=== PATIENT | female | born 1995 | race African-American/Black ===

== ENCOUNTER 2017-06-09 21:22 | Emergency (ER) | payer MEDICAID, OTHER ==
[~2017-06-09] VITALS: Ht 167.6 cm; Wt 84.0 kg
[2017-06-09 23:26] LABS: BASOPHILS % 0.6 % (0.0-2.0); EOSINOPHILS % 9.9 % (0.0-5.0); HEMOGLOBIN. 9.7 g/dL (12.0-16.0); LYMPHOCYTES % 35.8 % (20.0-50.0); MEAN CORPUSCULAR HEMOGLOBIN 29.1 pg (28.0-32.0); MEAN CORPUSCULAR VOLUME 86.7 fL (81.0-99.0); MEAN PLATELET VOLUME 7.5 fl (7.4-10.4); MONOCYTES % 8.9 % (2.0-8.0); NEUTROPHILS % 44.8 % (40.0-76.0); PLATELET 253 x1000/uL (130-400); RED BLOOD CELL COUNT 3.35 mill/uL (4.2-5.4); RED CELL DISTRIBUTION WIDTH 13.2 % (11.6-14.6)
[2017-06-09 23:30] LABS: CHLORIDE 107 mEq/L (98-107)
[2017-06-09 23:47] LABS: CARBON DIOXIDE 26 mEq/L (21-32)
[2017-06-09 23:55] LABS: B-HCG QUANTITATIVE 1798 mIU/mL (<3)
[2017-06-10 01:49] LABS: CLARITY URINE CLEAR (CLEAR); COLOR URINE YELLOW (YELLOW); GLUCOSE URINE NEGATIVE (NEGATIVE); KETONES URINE NEGATIVE (NEGATIVE); LEUKOCYTE ESTERASE URINE TRACE (NEGATIVE); NITRITE URINE NEGATIVE (NEGATIVE); OCCULT BLOOD URINE 3+ (NEGATIVE); PH URINE 6.5 (4.5-8.0); PROTEIN URINE NEGATIVE (NEGATIVE); SPECIFIC GRAVITY URINE 1.016 (1.005-1.030)
[2017-06-10 02:30] VITALS: BP 119/78
== END 2017-06-10 02:35 | disposition home or self-care (01) ==
LOC: ER 21:22
DX: O20.0 Threatened abortion (principal); O34.80 Maternal care for other abnormalities of pelvic organs, unspecified trimester; R19.01 Right upper quadrant abdominal swelling, mass and lump; Z3A.00 Weeks of gestation of pregnancy not specified
CPT/HCPCS: 36415; 76830; 76856; 80048; 81001; 81025; 84702; 85025; 86850; 86900; 99285

== ENCOUNTER 2017-12-21 22:04 | Emergency (ER) | payer OTHER, MEDICAID ==
[~2017-12-21] VITALS: Ht 167.6 cm; Wt 91.0 kg
[2017-12-21] MEDS ORDERED: SODIUM CHLORIDE 0.9% 1,000 ML IV ONE (23:15)
[2017-12-21] MEDS ORDERED: KETOROLAC 15MG/ML VIAL IV ONE (23:15)
[2017-12-21 23:58] LABS: BASOPHILS % 0.4 % (0.0-2.0); EOSINOPHILS % 2.6 % (0.0-5.0); HEMOGLOBIN. 10.3 g/dL (12.0-16.0); LYMPHOCYTES % 25.4 % (20.0-50.0); MEAN CORPUSCULAR HEMOGLOBIN 28.6 pg (28.0-32.0); MEAN PLATELET VOLUME 7.6 fl (7.4-10.4); NEUTROPHILS % 63.6 % (40.0-76.0); PLATELET 386 x1000/uL (130-400); RED BLOOD CELL COUNT 3.61 mill/uL (4.2-5.4); RED CELL DISTRIBUTION WIDTH 13.6 % (11.6-14.6)
[2017-12-22] LABS: HCG SCREEN NEGATIVE
[2017-12-22 00:01] LABS: CHLORIDE 107 mEq/L (98-107)
[2017-12-22 00:06] LABS: D-DIMER 3.21 mg/L FEU (<0.50); PARTIAL THROMBOPLASTIN TIME 31.3 sec (23.4-31.0); PROTHROMBIN TIME 10.4 sec (9.4-11.6)
[2017-12-22 00:09] LABS: CLARITY URINE CLEAR (CLEAR); COLOR URINE YELLOW (YELLOW); KETONES URINE NEGATIVE (NEGATIVE); LEUKOCYTE ESTERASE URINE TRACE (NEGATIVE); NITRITE URINE NEGATIVE (NEGATIVE); OCCULT BLOOD URINE NEGATIVE (NEGATIVE); PH URINE 7.5 (4.5-8.0); PROTEIN URINE NEGATIVE (NEGATIVE); SPECIFIC GRAVITY URINE 1.008 (1.005-1.030)
[2017-12-22] MEDS ORDERED: ALBUTEROL (0.083%) 2.5MG/3ML NEB HHN STA (01:44)
[2017-12-22] MEDS ORDERED: IOHEXOL-350 100 ML BOTTLE ONE (01:44)
[2017-12-22 02:07] VITALS: BP 111/67
== END 2017-12-22 03:19 | disposition home or self-care (01) ==
LOC: ER 22:04
DX: J98.11 Atelectasis (principal); R07.89 Other chest pain; D64.9 Anemia, unspecified
CPT/HCPCS: 36415; 71045; 71275; 80053; 81003; 83690; 83880; 84484; 84703; 85025; 85379; 85610; 85730; 93005; 94640; 96361; 96374; 99285; J1885; J7030; J7611; Q9967; Z7610

== ENCOUNTER 2020-03-12 18:19 | Emergency (ER) | payer OTHER, MEDICAID ==
[~2020-03-12] VITALS: Ht 167.6 cm; Wt 98.0 kg
[2020-03-12] MEDS ORDERED: KETOROLAC 60MG/2ML VIAL IM ONE (19:30)
[2020-03-12 19:32] VITALS: BP 136/81
[2020-03-12 19:46] LABS: CLARITY URINE CLEAR (CLEAR); COLOR URINE YELLOW (YELLOW); KETONES URINE NEGATIVE (NEGATIVE); LEUKOCYTE ESTERASE URINE TRACE (NEGATIVE); NITRITE URINE NEGATIVE (NEGATIVE); OCCULT BLOOD URINE NEGATIVE (NEGATIVE); PROTEIN URINE NEGATIVE (NEGATIVE); SPECIFIC GRAVITY URINE 1.005 (1.005-1.030); UROBILINOGEN URINE 0.2 E.U./dL (0.2-1.0)
== END 2020-03-12 20:19 | disposition home or self-care (01) ==
LOC: ER 18:19
DX: M54.5 Low back pain (principal); R35.0 Frequency of micturition; J45.909 Unspecified asthma, uncomplicated
CPT/HCPCS: 81003; 81025; 96372; 99283; J1885

== ENCOUNTER 2023-04-11 17:01 | Emergency (ER) | payer MEDICAID, OTHER ==
[~2023-04-11] VITALS: Ht 167.6 cm; Wt 104.0 kg
[2023-04-11 17:09] VITALS: TEMP 98.7
[2023-04-11] MEDS ORDERED: METHOCARBAMOL 500MG TABLET PO ONE (18:45)
[2023-04-11] MEDS ORDERED: IBUPROFEN 600MG TABLET PO ONE (18:45)
[2023-04-11 18:53] VITALS: BP 138/89; PULSE 72; RESP 16
[2023-04-11] MEDS ORDERED: IBUP-2029 MT (18:55)
== END 2023-04-11 19:11 | disposition home or self-care (01) ==
LOC: ER 17:01
DX: M54.2 Cervicalgia (principal); V49.49XA Driver injured in collision with other motor vehicles in traffic accident, initial encounter; Y93.89 Activity, other specified; Y92.89 Other specified places as the place of occurrence of the external cause; Y99.8 Other external cause status; J45.909 Unspecified asthma, uncomplicated
CPT/HCPCS: 73110; 73120; 99284